=== PATIENT | female | born 1965 | race Caucasian/White ===

== ENCOUNTER 2018-02-07 18:14 | Emergency (ER) | payer OTHER ==
[~2018-02-07] VITALS: Ht 162.6 cm; Wt 147.4 kg
[~2018-02-07 18:14] MED LIST: ACEASPCAF; ACET325 PO; ALBU90OI61 INH; ALBUIS INH; AMOCLA875 PO; AMOX500 PO; AZIT250 PO; Acetaminophen-1 EAC1 PO; DAYQUIL; ENOX120I SC; FLUT.05NI; GUAI600T33 PO; HYDACE5 PO; IBUP200; METPRE4DP PO; Percocet 10-321 EACH PO; RXAMOX500 PO; RXHYDACE PO; ULTRA-LIGHT RO1 EACH MC; WARF10 PO; WARF5 PO; WARF7.5 PO; XARELTO15 MG PO
[2018-02-07 19:28] LABS: BASOPHILS ABSOLUTE AUTO 0.03 K/mm3 (0.00-0.23); BASOPHILS PERCENT AUTO 0 % (0-2); EOSINOPHILS ABSOLUTE AUTO 0.06 K/mm3 (0.00-0.68); EOSINOPHILS PERCENT AUTO 1 % (0-6); Hematocrit 49.2 % (33.0-51.0); Hemoglobin 15.9 g/dL (11.5-16.0); IMMATURE GRAN ABSOLUTE AUTO 0.03 K/mm3 (0.00-0.10); IMMATURE GRAN PERCENT AUTO 0 % (0-1); LYMPHOCYTES ABSOLUTE AUTO 1.76 K/mm3 (0.84-5.20); LYMPHOCYTES PERCENT AUTO 22 % (21-46); MONOCYTES PERCENT AUTO 8 % (4-13); Mean Corpuscular HGB 29.9 pg (26.0-34.0); Mean Corpuscular HGB Conc 32.3 g/dL (31.5-36.5); Mean Corpuscular Volume 93 fL (80-100); Mean Platelet Volume 10.1 fL (9.1-12.4); NEUTROPHILS ABSOLUTE AUTO 5.52 K/mm3 (1.96-9.15); NEUTROPHILS PERCENT AUTO 69 % (41-73); Platelet Count 274 K/mm3 (150-400); RDW Coefficient Variation 13.4 % (11.7-14.2); RDW Standard Deviation 45.7 fL (35.1-46.3); Red Blood Cell Count 5.32 M/mm3 (3.80-5.20)
[2018-02-07 19:39] LABS: International Normalized Ratio 2.69; Prothrombin Time Results 26.2 Sec (9.7-11.5)
[2018-02-07 19:57] LABS: Alanine Aminotransfer (ALT/SGP 43 U/L (12-78); Albumin, Blood 3.8 g/dL (3.4-5.0); Alk Phos 80 U/L (50-136); Anion Gap 8 mmol/L (6-16); Aspartate Aminotrans (AST/SGOT 19 U/L (12-37); Bilirubin, Total 0.4 mg/dL (0.1-1.0); Blood Urea Nitrogen 20 mg/dL (8-24); Bun/Creatinine Ratio 24.3 (12.0-20.0); CO2, Blood 28 mmol/L (21-32); Calcium, Blood 9.3 mg/dL (8.5-10.1); Chloride, Blood 105 mmol/L (98-108); Creatinine, Blood 0.82 mg/dL (0.40-1.00); Globulin, Blood 3.8 g/dL (2.2-4.0); Glomerular Filtration Rate >60 (60-); Glucose, Blood 123 mg/dL (70-99); Potassium, Blood 4.3 mmol/L (3.5-5.5); Sodium, Blood 141 mmol/L (136-145); Total Protein, Blood 7.6 g/dL (6.4-8.2)
== END 2018-02-08 00:03 | disposition home or self-care (01) ==
LOC: ER 18:14
PROVIDERS: Nurse Practitioner Family
DX: S80.02XA Contusion of left knee, initial encounter (principal); S80.11XA Contusion of right lower leg, initial encounter; Z88.2 Allergy status to sulfonamides; Z79.899 Other long term (current) drug therapy; Z79.01 Long term (current) use of anticoagulants; Z87.891 Personal history of nicotine dependence; W19.XXXA Unspecified fall, initial encounter
CPT/HCPCS: 80053; 85025; 85610; 93971; 99284

== ENCOUNTER 2019-04-21 09:36 | Emergency (ER) | payer OTHER ==
[~2019-04-21] VITALS: Ht 162.6 cm; Wt 151.1 kg
[2019-04-21 10:19] LABS: BASOPHILS ABSOLUTE AUTO 0.04 K/mm3 (0.00-0.23); BASOPHILS PERCENT AUTO 0 % (0-2); EOSINOPHILS ABSOLUTE AUTO 0.04 K/mm3 (0.00-0.68); EOSINOPHILS PERCENT AUTO 0 % (0-6); Hematocrit 53.9 % (33.0-51.0); Hemoglobin 17.7 g/dL (11.5-16.0); IMMATURE GRAN ABSOLUTE AUTO 0.02 K/mm3 (0.00-0.10); IMMATURE GRAN PERCENT AUTO 0 % (0-1); LYMPHOCYTES ABSOLUTE AUTO 2.28 K/mm3 (0.84-5.20); LYMPHOCYTES PERCENT AUTO 22 % (21-46); MONOCYTES ABSOLUTE AUTO 0.95 K/mm3 (0.16-1.47); MONOCYTES PERCENT AUTO 9 % (4-13); Mean Corpuscular HGB 29.8 pg (26.0-34.0); Mean Corpuscular HGB Conc 32.8 g/dL (31.5-36.5); Mean Corpuscular Volume 91 fL (80-100); Mean Platelet Volume 10.9 fL (9.1-12.4); NEUTROPHILS ABSOLUTE AUTO 7.07 K/mm3 (1.96-9.15); NEUTROPHILS PERCENT AUTO 68 % (41-73); Platelet Count 289 K/mm3 (150-400); RDW Coefficient Variation 12.7 % (11.7-14.2); RDW Standard Deviation 42.5 fL (35.1-46.3); Red Blood Cell Count 5.93 M/mm3 (3.80-5.20)
[2019-04-21 10:33] LABS: Alanine Aminotransfer (ALT/SGP 63 U/L (12-78); Albumin, Blood 4.2 g/dL (3.4-5.0); Albumin/Globulin Ratio 1.1 (0.8-1.8); Alk Phos 102 U/L (50-136); Anion Gap 6 mmol/L (6-16); Aspartate Aminotrans (AST/SGOT 44 U/L (12-37); Bilirubin, Total 0.6 mg/dL (0.1-1.0); Blood Urea Nitrogen 11 mg/dL (8-24); Bun/Creatinine Ratio 15.2 (12.0-20.0); CO2, Blood 23 mmol/L (21-32); Calcium, Blood 9.5 mg/dL (8.5-10.1); Chloride, Blood 104 mmol/L (98-108); Creatinine, Blood 0.73 mg/dL (0.40-1.00); Globulin, Blood 3.7 g/dL (2.2-4.0); Glomerular Filtration Rate >60 (60-); Glucose, Blood 137 mg/dL (70-99); Potassium, Blood 3.4 mmol/L (3.5-5.5); Sodium, Blood 133 mmol/L (136-145); Total Protein, Blood 7.9 g/dL (6.4-8.2)
[2019-04-21 10:40] LABS: International Normalized Ratio 1.93; Prothrombin Time Results 19.3 Sec (9.7-11.5)
[2019-04-21] MEDS ORDERED: GABA300 PO (11:55)
[2019-04-21] MEDS ORDERED: PROM25 PO (11:59)
[2019-04-21] MEDS ORDERED: Zofran8 MG PO (11:59)
== END 2019-04-21 12:31 | disposition home or self-care (01) ==
LOC: ER 09:36
PROVIDERS: Emergency Medicine
DX: R11.2 Nausea with vomiting, unspecified (principal); R19.7 Diarrhea, unspecified; E86.0 Dehydration; R53.81 Other malaise; Z88.2 Allergy status to sulfonamides; Z79.51 Long term (current) use of inhaled steroids; Z79.01 Long term (current) use of anticoagulants; Z86.711 Personal history of pulmonary embolism; Z87.891 Personal history of nicotine dependence
CPT/HCPCS: 80053; 85025; 85610; 96361; 96374; 96375; 99284-25; J1200; J2405; J2550; J7030

== ENCOUNTER 2020-01-27 10:40 | Emergency (ER) | payer OTHER ==
[~2020-01-27] VITALS: Ht 162.6 cm; Wt 136.1 kg
[~2020-01-27 10:40] MED LIST changes: +GABA300 PO; +PROM25 PO; +Zofran8 MG PO
[2020-01-27 11:52] LABS: BASOPHILS ABSOLUTE AUTO 0.03 K/mm3 (0.00-0.23); BASOPHILS PERCENT AUTO 1 % (0-2); EOSINOPHILS ABSOLUTE AUTO 0.04 K/mm3 (0.00-0.68); EOSINOPHILS PERCENT AUTO 1 % (0-6); Hematocrit 51.4 % (33.0-51.0); Hemoglobin 16.2 g/dL (11.5-16.0); IMMATURE GRAN ABSOLUTE AUTO 0.01 K/mm3 (0.00-0.10); IMMATURE GRAN PERCENT AUTO 0 % (0-1); LYMPHOCYTES ABSOLUTE AUTO 1.45 K/mm3 (0.84-5.20); LYMPHOCYTES PERCENT AUTO 23 % (21-46); MONOCYTES ABSOLUTE AUTO 0.48 K/mm3 (0.16-1.47); MONOCYTES PERCENT AUTO 8 % (4-13); Mean Corpuscular HGB 29.1 pg (26.0-34.0); Mean Corpuscular HGB Conc 31.5 g/dL (31.5-36.5); Mean Corpuscular Volume 92 fL (80-100); Mean Platelet Volume 11.1 fL (9.1-12.4); NEUTROPHILS ABSOLUTE AUTO 4.35 K/mm3 (1.96-9.15); NEUTROPHILS PERCENT AUTO 68 % (41-73); Platelet Count 250 K/mm3 (150-400); RDW Coefficient Variation 13.2 % (11.7-14.2); RDW Standard Deviation 44.8 fL (35.1-46.3); Red Blood Cell Count 5.56 M/mm3 (3.80-5.20); White Blood Cell Count 6.36 K/mm3 (4.00-11.30)
[2020-01-27 12:08] LABS: Alanine Aminotransfer (ALT/SGP 77 U/L (12-78); Albumin, Blood 3.9 g/dL (3.4-5.0); Albumin/Globulin Ratio 1.1 (0.8-1.8); Alk Phos 103 U/L (50-136); Anion Gap 6 mmol/L (6-16); Aspartate Aminotrans (AST/SGOT 57 U/L (12-37); Bilirubin, Total 0.5 mg/dL (0.1-1.0); Blood Urea Nitrogen 12 mg/dL (8-24); Bun/Creatinine Ratio 18.2 (12.0-20.0); CO2, Blood 27 mmol/L (21-32); Calcium, Blood 8.9 mg/dL (8.5-10.1); Chloride, Blood 106 mmol/L (98-108); Creatinine, Blood 0.66 mg/dL (0.40-1.00); Globulin, Blood 3.7 g/dL (2.2-4.0); Glomerular Filtration Rate >60 (60-); Glucose, Blood 226 mg/dL (70-99); Potassium, Blood 3.9 mmol/L (3.5-5.5); Sodium, Blood 139 mmol/L (136-145); Total Protein, Blood 7.6 g/dL (6.4-8.2)
[2020-01-27 12:41] LABS: Source, Urine Clean Catch
[2020-01-27 12:46] LABS: Bilirubin, Urine Neg (Neg); Blood, Urine 5+ (Neg); Glucose Qualitative, Urine 1+ (Neg); Ketones, Urine 2+ (Neg); Leukocyte Esterase, Urine 1+ (Neg); Nitrite, Urine Neg (Neg); Protein, Urine 2+ (Neg); Specific Gravity, Urine 1.025 (1.003-1.022); Urobilinogen, Urine NORM (Normal)
[2020-01-27 12:57] LABS: Appearance, Urine Cloudy (Clear); Color, Urine Yellow (P-Yellow)
[2020-01-27 12:58] LABS: Bacteria Many /hpf; Red Blood Cells, Urine TNTC /hpf (0-2); Squamous Epithelial Cells Mod /hpf (Few)
[2020-01-27] MEDS ORDERED: Zofran4 MG PO (13:04)
[2020-01-27] MEDS ORDERED: Percocet 5-3251 EACH PO (13:04)
== END 2020-01-27 13:13 | disposition home or self-care (01) ==
LOC: ER 10:40
PROVIDERS: Emergency Medicine
DX: N20.2 Calculus of kidney with calculus of ureter (principal); Z88.2 Allergy status to sulfonamides; M19.90 Unspecified osteoarthritis, unspecified site; Z86.711 Personal history of pulmonary embolism; Z87.891 Personal history of nicotine dependence; L40.9 Psoriasis, unspecified
CPT/HCPCS: 36415; 74176; 80053; 81001; 83690; 85025; 87086; 93005; 93010; 96361; 96374; 96375; 99284-25; J1170; J2405; J7030

== ENCOUNTER 2021-10-25 23:24 | Inpatient (IN) | payer OTHER ==
[~2021-10-25] VITALS: Ht 162.6 cm; Wt 139.7 kg
[~2021-10-25 23:24] MED LIST changes: +Percocet 5-3251 EACH PO; +Zofran4 MG PO
[2021-10-26 00:44] LABS: BASOPHILS ABSOLUTE AUTO 0.09 K/mm3 (0.00-0.23); BASOPHILS PERCENT AUTO 1 % (0-2); EOSINOPHILS ABSOLUTE AUTO 0.06 K/mm3 (0.00-0.68); EOSINOPHILS PERCENT AUTO 0 % (0-6); Hematocrit 43.3 % (33.0-51.0); Hemoglobin 14.2 g/dL (11.5-16.0); IMMATURE GRAN ABSOLUTE AUTO 0.71 K/mm3 (0.00-0.10); IMMATURE GRAN PERCENT AUTO 5 % (0-1); LYMPHOCYTES ABSOLUTE AUTO 2.28 K/mm3 (0.84-5.20); LYMPHOCYTES PERCENT AUTO 16 % (21-46); MONOCYTES ABSOLUTE AUTO 0.83 K/mm3 (0.16-1.47); MONOCYTES PERCENT AUTO 6 % (4-13); Mean Corpuscular HGB 28.2 pg (26.0-34.0); Mean Corpuscular HGB Conc 32.8 g/dL (31.5-36.5); Mean Corpuscular Volume 86 fL (80-100); Mean Platelet Volume 10.7 fL (9.1-12.4); NEUTROPHILS ABSOLUTE AUTO 10.62 K/mm3 (1.96-9.15); NEUTROPHILS PERCENT AUTO 73 % (41-73); Platelet Count 207 K/mm3 (150-400); RDW Coefficient Variation 13.7 % (11.7-14.2); RDW Standard Deviation 43.5 fL (35.1-46.3); Red Blood Cell Count 5.04 M/mm3 (3.80-5.20); White Blood Cell Count 14.59 K/mm3 (4.00-11.30)
[2021-10-26 00:59] LABS: Anion Gap 8 mmol/L (6-16); Blood Urea Nitrogen 14 mg/dL (8-24); Bun/Creatinine Ratio 33.7 (12.0-20.0); CO2, Blood 29 mmol/L (21-32); Chloride, Blood 100 mmol/L (98-108); Creatinine, Blood 0.42 mg/dL (0.40-1.00); Glomerular Filtration Rate >60 (60-); Glucose, Blood 185 mg/dL (70-99); Potassium, Blood 3.2 mmol/L (3.5-5.5); Sodium, Blood 137 mmol/L (136-145)
[2021-10-26] MEDS ORDERED: PIOG30 PO (04:39)
[2021-10-26] MEDS ORDERED: METF500 PO (04:39)
[2021-10-26] MEDS ORDERED: GLIP5ER PO (04:41)
[2021-10-26] MEDS ORDERED: ZOCOR20 MG PO (04:42)
[2021-10-26] MEDS ORDERED: ELIQUIS5 M2 PO (04:42)
[2021-10-26] MEDS ORDERED: CLIN150 PO (04:44)
[2021-10-26] MEDS ORDERED: VITAMIN D5000 UNIT PO (04:44)
[2021-10-26] MEDS ORDERED: QUERCETIN PO (04:47)
[2021-10-26] MEDS ORDERED: [UNRECOGNIZED DRUG - OTHER] PO (04:49)
--- NOTE | 2021-10-26 05:44 | NUR ---
SHIFT SUMMARY PATIENT ARRIVED TO ROOM 326 VIA STRETCHER AT 0342. SHE IS ALERT AND ORIENTED AND ABLE TO INDEPENDENTLY AMBULATE SAFELY. MEDICATED PER EMAR FOR PAIN. NO ACUTE ISSUES NOTED SINCE ADMIT. CALL LIGHT WITHIN REACH. REPORT GIVEN TO ONCOMING RN.
[2021-10-26 15:45] LABS: International Normalized Ratio 1.02; Prothrombin Time Results 10.7 Sec (9.7-11.5)
--- NOTE | 2021-10-26 19:08 | NUR ---
SHIFT SUMMARY PATIENT A&O X4. AMBULATES INDEPENDENTLY IN ROOM. PATIENT SEEN BY ENT THIS SHIFT. NO SURGERY AT THIS TIME. RECEIVING IV ANTIBIOTICS, DECADRON AND IV HEPARIN. PATIENT COMPLAINING OF PAIN AND INCREASED PRESSURE IN HER JAW/NECK. MEDICATED PER OCT. PATIENT'S FAMILY AT BEDSIDE T/O SHIFT. BED IN LOW POSITION WITH CALL LIGHT IN REACH. WILL CONTINUE TO MONITOR.
--- NOTE | 2021-10-27 05:45 | NUR ---
SHIFT SUMMARY PATIENT ALERT AND ORIENTED. MEDICATED PER EMAR FOR PAIN. HAD NO COMPLAINTS OF SHORTNESS OF BREATH. NO ACUTE ISSUES NOTED OVERNIGHT. CALL LIGHT WITHIN REACH. REPORT GIVEN TO ONCOMING RN.
[2021-10-27 06:37] LABS: Hemoglobin 13.5 g/dL (11.5-16.0); Mean Corpuscular HGB 28.5 pg (26.0-34.0); Mean Corpuscular HGB Conc 32.1 g/dL (31.5-36.5); Mean Corpuscular Volume 89 fL (80-100); Mean Platelet Volume 11.1 fL (9.1-12.4); Platelet Count 232 K/mm3 (150-400); RDW Coefficient Variation 13.7 % (11.7-14.2); RDW Standard Deviation 44.6 fL (35.1-46.3); Red Blood Cell Count 4.73 M/mm3 (3.80-5.20); White Blood Cell Count 12.93 K/mm3 (4.00-11.30)
[2021-10-27 06:57] LABS: BAND PERCENT MAN 1 % (0-8); BASOPHILS PERCENT MAN 0 % (0-2); EOSINOPHILS PERCENT MAN 0 % (0-6); LYMPHOCYTES PERCENT MAN 7 % (21-46); MONOCYTES ABSOLUTE MAN 0.51 K/mm3 (0.16-1.47); MONOCYTES PERCENT MAN 4 % (4-13); MYELOCYTE ABSOLUTE MAN 0.38 K/mm3 (0.00-0.00); MYELOCYTE PERCENT MAN 3 % (0-0); NEUTROPHILS ABSOLUTE MAN 10.99 K/mm3 (1.96-9.15); SEG NEUTROPHILS PERCENT MAN 84 % (41-73); TOTAL CELLS COUNTED 100
[2021-10-27 06:58] LABS: PLASMA CELL ABSOLUTE MAN 0.12 K/mm3 (0.00-0.00); PLASMA CELLS PERCENT MAN 1 % (0-0)
[2021-10-27 07:00] LABS: Anion Gap 7 mmol/L (6-16); Blood Urea Nitrogen 14 mg/dL (8-24); Bun/Creatinine Ratio 33.1 (12.0-20.0); CO2, Blood 27 mmol/L (21-32); Calcium, Blood 8.7 mg/dL (8.5-10.1); Chloride, Blood 106 mmol/L (98-108); Creatinine, Blood 0.42 mg/dL (0.40-1.00); Glomerular Filtration Rate >60 (60-); Glucose, Blood 248 mg/dL (70-99); Potassium, Blood 3.7 mmol/L (3.5-5.5); Sodium, Blood 140 mmol/L (136-145)
--- NOTE | 2021-10-27 19:38 | NUR ---
SHIFT SUMMARY PATIENT A&O X4. INDEPENDENT IN ROOM. ON HEPARIN DRIP. RECEIVING IV ANTIBIOTICS AND STEROIDS. APPLYING WARM COMPRESSSES TO NECK FOR 20MIN Q1H PER ENT DR. SWELLING REDUCED GREATLY. MEDICATED FOR PAIN PER OCT. PATIENT RESPONDING WELL TO MORPHINE. REPORT GIVEN TO ONCOMING RN.
--- NOTE | 2021-10-28 05:12 | NUR ---
PT IS ASLEEP THIS MORNING. PT C/O PAIN, PAIN MEDICATION GIVEN PER EMAR AND HOT COMPRESS EVERY HOUR WHILE AWAKE. PT EXPRESSED RELEIF OF PAIN AFTER INTERVENTION. PT STILL ON HEPARIN DRIP, NO SIGNS OF ABNORMAL BLEEDING NOTED. OTHERWISE NO ACUTE EVENTS OVERNIGHT, PT CALL LIGHT AND BELONGINGS WITHIN REACH.
[2021-10-28 06:26] LABS: Hematocrit 40.1 % (33.0-51.0); Hemoglobin 12.6 g/dL (11.5-16.0); Mean Corpuscular HGB 28.6 pg (26.0-34.0); Mean Corpuscular HGB Conc 31.4 g/dL (31.5-36.5); Mean Corpuscular Volume 91 fL (80-100); Mean Platelet Volume 10.6 fL (9.1-12.4); Platelet Count 245 K/mm3 (150-400); RDW Coefficient Variation 13.8 % (11.7-14.2); White Blood Cell Count 10.69 K/mm3 (4.00-11.30)
[2021-10-28 06:41] LABS: Anion Gap 7 mmol/L (6-16); Blood Urea Nitrogen 15 mg/dL (8-24); Bun/Creatinine Ratio 37.3 (12.0-20.0); CO2, Blood 26 mmol/L (21-32); Calcium, Blood 8.3 mg/dL (8.5-10.1); Chloride, Blood 106 mmol/L (98-108); Glomerular Filtration Rate >60 (60-); Glucose, Blood 254 mg/dL (70-99); Potassium, Blood 3.9 mmol/L (3.5-5.5); Sodium, Blood 139 mmol/L (136-145)
[2021-10-28] MEDS ORDERED: AMOCLA875 PO (14:58)
[2021-10-28] MEDS ORDERED: Acetaminophen325 M1 PO (14:58)
[2021-10-28] MEDS ORDERED: VISBIOME 112.51 EACH PO (14:58)
[2021-10-28] MEDS ORDERED: TRAM50 PO (14:59)
--- NOTE | 2021-10-28 15:50 | NUR ---
DISCHARGE SUMMARY IVS REMOVED PRIOR TO DISCHARGE. WRITTEN RX GIVEN TO PT FOR PAIN MED. MEDS FAXED TO PHARMACY. DISCHARGE EDUCATION REVIEWED WITH AND SIGNED BY PT PRIOR TO DISCHARGE. PT TRANSPORTED VIA WHEELCHAIR TO [facility] TO MEET RIDE, ALONG WITH ALL PERSONAL BELONGINGS.
== END 2021-10-28 15:46 | disposition home or self-care (01) | DRG 155 ==
LOC: ER 23:24 → MEDS 23:25
PROVIDERS: Family Medicine; Hospitalist; Pharmacist; Student in an Organized Health Care Education/Training Program; ADMIT Family Medicine
DX: K11.3 Abscess of salivary gland (principal); D68.51 Activated protein C resistance; J39.0 Retropharyngeal and parapharyngeal abscess; E87.6 Hypokalemia; R13.10 Dysphagia, unspecified; E11.9 Type 2 diabetes mellitus without complications; M19.90 Unspecified osteoarthritis, unspecified site; Z86.711 Personal history of pulmonary embolism; Z28.21 Immunization not carried out because of patient refusal; Z79.01 Long term (current) use of anticoagulants; Z79.899 Other long term (current) drug therapy; Z88.2 Allergy status to sulfonamides; Z87.891 Personal history of nicotine dependence; Z90.49 Acquired absence of other specified parts of digestive tract; Z98.890 Other specified postprocedural states
CPT/HCPCS: 36415; 70491; 80048; 82947; 84132; 85025; 85027; 85610; 85730; 94640; 94664; 94760; 96365; 96366; 96372; 96375; 96376; 99284-25; A9270; G0378; J0295; J1100; J1170; J1644; J1815; J1885; J2270; J3480; J7030; J7050; Q9967

== ENCOUNTER → 2022-05-21 | Outpatient (CLI) | payer OTHER ==
[~2022-05-21] MED LIST changes: +Acetaminophen325 M1 PO; +CLIN150 PO; +ELIQUIS5 M2 PO; +GLIP5ER PO; +METF500 PO; +PIOG30 PO; +QUERCETIN PO; +TRAM50 PO; +VISBIOME 112.51 EACH PO; +VITAMIN D5000 UNIT PO; +ZOCOR20 MG PO; +[UNRECOGNIZED DRUG - OTHER] PO
== END | disposition home or self-care (01) ==
LOC: LAB SHORT 16:48 → LAB 16:48
DX: E11.9 Type 2 diabetes mellitus without complications (principal)
CPT/HCPCS: 83036